=== PATIENT | male | born 1925 | race Caucasian/White ===

== ENCOUNTER → 2016-04-01 | Outpatient (CLI) | payer OTHER ==
[~2016-04-01] MED LIST: ASPIR 8181 M1 PO; CARDIZEM CD180 MG PO; CARDURA4 MG PO; CEFTIN 250 MG250 MG PO; CELEXA 10 MG TA10 M1 PO; COLCHICINE0.6 MG PO; COMBIGAN EYE DR10 ML OPHTHALMIC; DUONEB 2.5-0.5 M3 ML INH; ENOXAPARIN40 MG/0.1 SUBQ; GABAPENTIN 100100 MG PO; LASIX 40 MG TAB40 M2 PO; LEVAQUIN 500 M500 M2 PO; NITROGLYCERIN0.4 MG SUBLING; NORCO 5-325 TA1 EACH PO; NORVASC5 MG PO; PAXIL10 MG; POTASSIUM20 PO; PRAVACHOL40 MG PO; PREDNISONE 10 M10 MG PO; PREDNISONE 5 MG5 M1 PO; PROTONIX40 M1 PO; REMERON15 MG PO; TYLENOL325 MG PO; VIMPAT100 MG PO
== END ==
LOC: RAD 09:56
DX: G47.33 Obstructive sleep apnea (adult) (pediatric) (principal); J98.11 Atelectasis